=== PATIENT | male | born 1980 | race Caucasian/White ===

== ENCOUNTER 2017-04-28 20:43 | Emergency (ER) | payer BC ==
[~2017-04-28] VITALS: Ht 172.7 cm; Wt 78.0 kg
[2017-04-28 20:46] VITALS: BP 123/78
[2017-04-28] MEDS ORDERED: LIDOCAINE 1%, 20ML ONE (21:00)
[2017-04-28] MEDS ORDERED: DIPH,PERTUSS(ACELL),TET VAC/PF 0.5 ML IM-VACC ONE ×3 (21:00→22:00)
[2017-04-28] MEDS ORDERED: LIDOCAINE 1%, 20ML SQ ONE (21:00)
[2017-04-28] MEDS ORDERED: BACITRACIN ZINC OINT 500U/GM, 0.9 GM ONE (21:56)
== END 2017-04-28 22:10 | disposition home or self-care (01) ==
LOC: ED 22:01
DX: S61.211A Laceration without foreign body of left index finger without damage to nail, initial encounter (principal); W29.8XXA Contact with other powered hand tools and household machinery, initial encounter; Y93.89 Activity, other specified; Y92.098 Other place in other non-institutional residence as the place of occurrence of the external cause; Y99.8 Other external cause status
CPT/HCPCS: 12001